=== PATIENT | male | born 1990 | race Caucasian/White ===

== ENCOUNTER 2018-11-13 00:52 | Emergency (ER) | payer OTHER ==
[2018-11-13 01:14] VITALS: BP 140/93
[2018-11-13] MEDS ORDERED: IBUPROFEN 600 MG TABLET PO ONE (05:49)
[2018-11-13] MEDS ORDERED: ACETAMINOPHEN 325 MG TABLET PO ONE (05:50)
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
[2018-11-13] MEDS ORDERED: DIPH/PERTUSS(ACELL)/TETANUS VAC/PF 0.5 ML SYR (>=10YO) IM ONE (08:50)
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
== END 2018-11-13 09:01 | disposition home or self-care (01) ==
LOC: ER 00:52
DX: S90.02XA Contusion of left ankle, initial encounter (principal); S01.111A Laceration without foreign body of right eyelid and periocular area, initial encounter; M25.572 Pain in left ankle and joints of left foot; R51 Headache; V59.9XXA Occupant (driver) (passenger) of pick-up truck or van injured in unspecified traffic accident, initial encounter
CPT/HCPCS: 90471; 90715; 99283